=== PATIENT | male | born 1990 | race African-American/Black ===

== ENCOUNTER 2018-02-03 21:55 | Emergency (ER) | payer BC, MEDICAID, SELFPAY ==
[2018-02-03] MEDS ORDERED: Acetaminophen 500 MG TAB ONE (22:54)
== END 2018-02-03 23:05 | disposition home or self-care (01) ==
LOC: ERS 21:55
DX: J30.9 Allergic rhinitis, unspecified (principal); F17.210 Nicotine dependence, cigarettes, uncomplicated; Z71.6 Tobacco abuse counseling
CPT/HCPCS: 99406

== ENCOUNTER 2018-05-01 11:22 | Emergency (ER) | payer SELFPAY | END 2018-05-01 12:45 | disposition home or self-care (01) | LOC: ERS 11:22 | DX: K08.89 Other specified disorders of teeth and supporting structures (principal); F17.210 Nicotine dependence, cigarettes, uncomplicated | CPT/HCPCS: 99282 ==

== ENCOUNTER 2018-07-24 07:09 | Emergency (ER) | payer SELFPAY ==
[2018-07-24] MEDS ORDERED: Lidocaine 1% w/Epinephrine 1:100K 20 ML VIAL ONE (08:16)
== END 2018-07-24 09:00 | disposition home or self-care (01) ==
LOC: ERS 07:09
DX: H05.011 Cellulitis of right orbit (principal); F17.210 Nicotine dependence, cigarettes, uncomplicated
CPT/HCPCS: 10061; J2001

== ENCOUNTER 2020-09-22 07:44 | Emergency (ER) | payer SELFPAY | END 2020-09-22 08:06 | disposition left against medical advice (07) | LOC: ERS 07:44 | DX: Z53.21 Procedure and treatment not carried out due to patient leaving prior to being seen by health care provider (principal) ==